=== PATIENT | female | born 1980 | race Caucasian/White ===

== ENCOUNTER 2024-03-06 09:20 | Outpatient (CLI) | payer MEDICAID ==
[~2024-03-06] VITALS: Ht 154.9 cm; Wt 61.2 kg
== END 2024-03-06 16:00 | disposition home or self-care (01) ==
LOC: SLB 09:20 → EDSTATUS 03-08 11:30 → SLB 03-08 13:58
PROVIDERS: ATTEND Obstetrics & Gynecology
DX: Z30.2 Encounter for sterilization (principal)
CPT/HCPCS: 87081